=== PATIENT | male | born 1945 | race Asian ===

== ENCOUNTER 2016-08-12 10:17 | Inpatient (IN) | payer OTHER, MEDICAID ==
[~2016-08-12] VITALS: Ht 154.9 cm; Wt 56.5 kg
[~2016-08-12 10:17] MED LIST: ALBU18HF IH; ALBU8.5H3 INH; ALBU8.5H5 IH; AZIT250T94 PO; BUDE6HFA IH; PRED20TA PO; TIOT18CA IH
[2016-08-12] MEDS ORDERED: IPRATROPIUM (NEB) 0.5 MG/2.5 ML AMP INH STA ×2 (10:26→12:09)
[2016-08-12] MEDS ORDERED: ALBUTEROL 0.5% (NEB) 2.5 MG/0.5 ML AMP INH STA ×2 (10:26→12:09)
--- NOTE | 2016-08-12 10:56 | RADRPT ---
PROCEDURE: XR Chest. CLINICAL INDICATION: Shortness of breath TECHNIQUE: Chest AP portable COMPARISON: 05/12/2016 FINDINGS: The mediastinal structures are unremarkable. There is calcification of the thoracic aorta (consiste nt with atherosclerosis). The heart is normal in size and configuration. The pulmonary vascularity is normal. There is mild bibasilar subsegmental atelectasis. No consolidation is identified. The pleural spaces are unremarkable. There are senescent changes of the axial skeleton. IMPRESSION: Calcification of the thoracic aorta (consistent with atherosclerosis). No evidence for active cardiopulmonary disease. RPTAT: HGDB .Omari Mandel MD, Date Time Electronically viewed and signed by .Omari Mandel MD, on 08/12/2016 10:56 .B/
[2016-08-12] MEDS ORDERED: ALBU18HF INHALATION (11:04)
[2016-08-12] MEDS ORDERED: ADV10050 INHALATION (11:04)
[2016-08-12 11:20] LABS: CHLORIDE 96 mmol/L (97-110)
[2016-08-12 11:21] LABS: ALBUMIN 4.4 g/dl (3.3-4.9); SODIUM 139 mmol/L (135-144)
[2016-08-12 11:22] LABS: POTASSIUM 5.2 mmol/L (3.5-5.1)
[2016-08-12 11:24] LABS: ALANINE AMINOTRANSFERASE 20 IU/L (13-69); ALBUMIN/GLOBULIN RATIO 1.15; ALKALINE PHOSPHATASE 40 IU/L (42-121); ANION GAP 18 (8-16); ASPARTATE AMINO TRANSFERASE 39 IU/L (15-46); BILIRUBIN,INDIRECT 0.5 mg/dl (0-1.1); BILIRUBIN,TOTAL 0.5 mg/dl (0.2-1.3); BLOOD UREA NITROGEN 9 mg/dl (7-20); CARBON DIOXIDE 30 mmol/L (21-31); CREATININE 0.81 mg/dl (0.61-1.24); GLUCOSE 90 mg/dl (70-220); TOTAL PROTEIN 8.2 g/dl (6.1-8.1)
[2016-08-12 11:32] LABS: B-TYPE NATRIURETIC PEPTIDE 38 PG/ML (0-125); BASOPHILS % 0.1 % (0.0-2.0); EOSINOPHILS # 0.3 10^3/ul (0.0-0.5); EOSINOPHILS % 3.5 % (0.0-7.0); HEMATOCRIT 44.1 % (42.0-52.0); HEMOGLOBIN 15.2 g/dl (14.0-18.0); LYMPHOCYTES # 1.4 10^3/ul (0.8-2.9); LYMPHOCYTES % 15.5 % (15.0-51.0); MEAN CORPUSCULAR HEMOGLOBIN 35.1 pg (29.0-33.0); MEAN CORPUSCULAR HGB CONC 34.5 g/dl (32.0-37.0); MEAN CORPUSCULAR VOLUME 101.7 fl (82.0-101.0); MEAN PLATELET VOLUME 8.4 fl (7.4-10.4); MONOCYTE # 0.8 10^3/ul (0.3-0.9); MONOCYTES % 9.1 % (0.0-11.0); NEUTROPHIL # 6.3 10^3/ul (1.6-7.5); NEUTROPHILS % 71.8 % (39.0-77.0); PLATELET COUNT 179 10^3/UL (140-440); RED BLOOD COUNT 4.33 10^6/ul (4.70-6.10); RED CELL DISTRIBUTION WIDTH 13.9 % (11.5-14.5); UNCORRECTED WBC 8.8 10^3/ul (4.8-10.8); WHITE BLOOD COUNT 8.8 10^3/ul (4.8-10.8)
[2016-08-12 11:35] LABS: TROPONIN-I < 0.012 ng/ml (0.00-0.12)
[2016-08-12 11:37] LABS: CONDITION 1; LH ANALYZER COMMENTS 1
[2016-08-12] MEDS ORDERED: METHYLPREDNISOLONE 125 MG INJ IV STA (12:09)
--- NOTE | 2016-08-12 12:19 | ERA ---
ER Documentation Chief Complaint Date/Time DATE: 08/12/16 TIME: 1024 Chief Complaint MILD WHEEZING AND COUGH WITH SOB FOR 2 DAYS. NO SPUTUM. NO FEVERS. HPI 71-year-old male presents to the emergency department with his for evaluation of shortness of breath. Patient is a nie-[id number] male and my history is available only via conversation with the . According to the , patient has had increasing shortness of breath for the last 2 days. Patient has had wheezing and sputum production. Patient has had no hemoptysis. Patient reports no fevers chills or weight loss. Patient has had no significant chest pain. Despite the use of inhalers at home, patient continued to have shortness of breath. ROS All systems reviewed and are negative except as per history of present illness. Medications Home Meds Reported Medications Albuterol Sulfate* (Ventolin HFA*) 18 Gm Hfa.aer.ad, 2 PUFF INHALATION Q6H, #1 INHALER 08/12/16 Salmeterol Xinaf-Fluticasone* (Advair*) 100/50 Diskus Inhaler, 1 INH INHALATION BID, #1 INHALER 08/12/16 Discontinued Reported Medications Tiotropium Encampment* (Spiriva*) 18 Mcg Cap.w.dev, 1 INH IH DAILY, EA 11/27/14 Discontinued Scripts Prednisone* (Prednisone*) 20 Mg Tab, 20 MG PO DAILY for 4 Days, TAB Prov:OLIVE MASON PA-C 05/12/16 Azithromycin* (Zithromax*) 250 Mg Tablet, 250 MG PO .TheePACK DIRECTED, #6 TAB TAKE 500 MG (2 TABS) THE FIRST DAY THEN 250 MG (1 TAB) DAYS 2-5 Prov:OLIVE MASON PA-C 05/12/16 Albuterol Sulfate* (Proair HFA*) 8.5 Gm Hfa.aer.ad, 2 PUFF INH Q4, #1 INHALER Prov:OLIVE MASON PA-C 05/12/16 Albuterol Sulfate* (Albuterol Sulfate* HFA) 8.5 Gm Hfa.aer.ad, 2 PUFF IH Q4H Y for WHEEZING AND SOB, #1 EA Prov:HORTENSIA FARIAS MD 11/27/14 Budesonide-Formoterol Fumarate* (Symbicort*) 160-4.5 Hfa.aer.ad, 1 PUFF IH BID, #1 INH Prov:HORTENSIA FARIAS MD 11/27/14 Prednisone* (Prednisone*) 20 Mg Tab, 40 MG PO DAILY for 4 Days, TAB With Meals Prov:HORTENSIA FARIAS MD 11/27/14 Albuterol Sulfate* (Ventolin HFA*) 18 Gm Hfa.aer.ad, 2 PUFF IH Q4H Y for WHEEZING AND RESP DISTRESS, #30 EA 1 Refill Prov:BRAULIOGERALDINEKRISS 09/25/14 Allergies Allergies: Coded Allergies: No Known Allergies (Verified Allergy, Unknown, 08/12/16) PMhx/Soc History of Surgery: Yes (colonscopy and polypectomy 2011) Anesthesia Reaction: No Hx Neurological Disorder: No Hx Respiratory Disorders: Yes (sob / emphysema ) Hx Cardiac Disorders: No Hx Psychiatric Problems: No Hx Miscellaneous Medical Probl: Yes (COPD/Emphysema) Hx Alcohol Use: Yes (a beer occassionally) Hx Substance Use: No Hx Tobacco Use: Yes Smoking Status: Current every day smoker FmHx Noncontributory for chief complaint Physical Exam Vitals Vital Signs Date Time Temp Pulse Resp B/P Pulse Ox O2 Delivery O2 Flow Rate FiO2 08/12/16 10:49 83 20 99 Nasal Cannula 2.0 08/12/16 10:25 Nasal Cannula 2 08/12/16 10:18 98.8 92 24 146/73 93 Physical Exam GENERAL: The patient is well developed and appropriate for usual state of health in no apparent distress HEENT: Pupils equal, round, and reactive to light. EOMI. There is no scleral icterus. NECK: C-spine is soft and supple, there is no meningismus. There is no cervical lymphadenopathy. LUNGS: Wheezing and crackles bilaterally. Minimal tachypnea with no retractions or use of accessory muscles HEART: Regular rate and rhythm, no murmurs, clicks, rubs or gallops. ABDOMEN: Soft, non-tender, non-distended. There are bowel sounds in all four quadrants. No rebound or guarding. EXTREMITIES: There is no peripheral cyanosis or edema. No focal swelling or erythema. NEURO: The patient moves all four extremities with 5/5 strength. Cranial nerves II - XII are intact. Normal gait. Alert and oriented SKIN: There is no apparent rash or petechiae. HEME/LYMPHATIC: There is no evidence of excessive bruising or lymphedema. PSYCHIATRIC: The patient does not appear anxious or depressed. Result Diagram: 08/12/16 1040 08/12/16 1040 Results 24 hrs Laboratory Tests Test 08/12/16 10:40 Alanine Aminotransferase (ALT/SGPT) 20IU/L Albumin 4.4g/dl Albumin/Globulin Ratio 1.15 Alkaline Phosphatase 40IU/L Anion Gap 18 Aspartate Amino Transf (AST/SGOT) 39IU/L B-Type Natriuretic Peptide 38PG/ML Basophils # 0.010^3/ul Basophils % 0.1% Blood Morphology Comment Blood Urea Nitrogen 9mg/dl Calcium Level 9.0mg/dl Carbon Dioxide Level 30mmol/L Chloride Level 96mmol/L Creatinine 0.81mg/dl Direct Bilirubin 0.00mg/dl Eosinophils # 0.310^3/ul Eosinophils % 3.5% Globulin 3.80g/dl Glucose Level 90mg/dl Hematocrit 44.1% Hemoglobin 15.2g/dl Indirect Bilirubin 0.5mg/dl Lactic Acid Level 2.7mmol/L Lymphocytes # 1.410^3/ul Lymphocytes % 15.5% Mean Corpuscular Hemoglobin 35.1pg Mean Corpuscular Hemoglobin Concent 34.5g/dl Mean Corpuscular Volume 101.7fl Mean Platelet Volume 8.4fl Monocytes # 0.810^3/ul Monocytes % 9.1% Neutrophils # 6.310^3/ul Neutrophils % 71.8% Nucleated Red Blood Cells # 0.010^3/ul Nucleated Red Blood Cells % 0.0/100WBC Platelet Count 26653^3/UL Potassium Level 5.2mmol/L Red Blood Count 4.3310^6/ul Red Cell Distribution Width 13.9% Sodium Level 139mmol/L Total Bilirubin 0.5mg/dl Total Protein 8.2g/dl Troponin I < 0.012ng/ml White Blood Count 8.810^3/ul Current Medications Medications (Trade) Dose Ordered Sig/Emmanuel Route PRN Reason Start Time Stop Time Status Last Admin Dose Admin Albuterol (Proventil 0.5% (Neb)) 5 mg ONCE STAT INH 08/12/16 10:26 08/12/16 10:28 DC 08/12/16 10:49 Ipratropium Encampment (Atrovent 0.02% (Neb)) 0.5 mg ONCE STAT INH 08/12/16 10:26 08/12/16 10:28 DC 08/12/16 10:49 Albuterol (Proventil 0.5% (Neb)) 5 mg ONCE STAT INH 08/12/16 12:09 08/12/16 12:11 DC Ipratropium Encampment (Atrovent 0.02% (Neb)) 0.5 mg ONCE STAT INH 08/12/16 12:09 08/12/16 12:11 DC Methylprednisolone Sodium Succinate 125 mg 125 mg ONCE STAT IV 08/12/16 12:09 08/12/16 12:11 DC Levofloxacin/ Dextrose (Levaquin 750 Mg/ D5W 150 ml (Pmx)) 150 ml @ 100 mls/hr ONCE ONCE IVPB 08/12/16 12:30 08/12/16 13:59 Procedures/MDM Patient was taken to a room, seen and evaluated. Comfort measures were initiated. Diagnostic tests were ordered and reviewed. 3 LEAD RHYTHM STRIP: Normal sinus rhythm without ectopy EK lead EKG reviewed by myself: Normal Sinus Rhythm Normal [place] and intervals No ST elevation, depression, or T wave inversion Impression: Normal EKG RADIOLOGY: reviewed with the radiologist CONSULTATION: hospitalist was notified for admission REEVALUATION: Patient has required ongoing bronchodilators. Lactate was noted to be elevated. Patient was cultured and antibiotics were given. MEDICAL DECISION MAKING: Patient presents for shortness of breath. Differential diagnosis entertained included asthma, pneumonia, other cardiac and pulmonary concerns. After reviewing the patient's diagnostic tests and clinical presentation, patient appears to have decompensated COPD with a possible bronchitis versus early pneumonia. Given the patient's ongoing shortness of breath and borderline saturation upon presentation, patient will be admitted for observation and further treatment.. JULIA PENALOZA Aug 12, 2016 12:19
[2016-08-12 12:30] LABS: ADD UMIC NO; URINE BILIRUBIN (Dip) NEGATIVE (NEGATIVE); URINE BLOOD (Dip) NEGATIVE (NEGATIVE); URINE COLOR LT. YELLOW (YELLOW); URINE GLUCOSE (Dip) NEGATIVE (NEGATIVE); URINE KETONES (Dip) NEGATIVE (NEGATIVE); URINE LEUKOCYTE ESTERASE (Dip) NEGATIVE (NEGATIVE); URINE NITRITE (Dip) NEGATIVE (NEGATIVE); URINE TOTAL PROTEIN (Dip) NEGATIVE (NEGATIVE); URINE UROBILINOGEN (Dip) 0.2 E.U./dL (0.1-1.0)
[2016-08-12] MEDS ORDERED: LORAZEPAM 0.5 MG TAB PO PRN (12:30)
[2016-08-12] MEDS: ALBUTEROL HFA 8 GM INHALER INH SCH ×2 (12:30→18:03)
[2016-08-12] MEDS ORDERED: ALBUTEROL/IPRATROPIUM (NEB) 3 ML AMP HHN PRN (12:30)
[2016-08-12] MEDS ORDERED: LEVOFLOXACIN 750MG/D5W (PMX) 150 ML IVPB ONE (12:30)
[2016-08-12] MEDS ORDERED: DOCUSATE SODIUM 100 MG CAP PO PRN (12:30)
[2016-08-12] MEDS ORDERED: NITROGLYCERIN (SL) 0.4 MG TAB SL PRN (12:30)
[2016-08-12] MEDS ORDERED: ACETAMINOPHEN 325 MG TAB PO PRN (12:30)
[2016-08-12] MEDS ORDERED: ONDANSETRON 4 MG TAB PO PRN (12:30)
[2016-08-12] MEDS ORDERED: NACL 0.9% 3 ML SYG IV SCH (12:30)
[2016-08-12] MEDS ORDERED: BISACODYL (EC) 5 MG TAB PO PRN (12:30)
[2016-08-12 13:39] LABS: INR 1.03; PROTIME 13.5 Sec (12.2-14.2); PT RATIO 1.1
[2016-08-12 13:40] LABS: PARTIAL THROMBOPLASTIN TIME 34.3 Sec (25.0-35.0)
[2016-08-12 13:42] LABS: CREATINE KINASE 55 IU/L (23-200)
[2016-08-12] MEDS: METHYLPREDNISOLONE 125 MG INJ IV SCH ×2 (13:45→23:15)
[2016-08-12] MEDS: ALBUTEROL/IPRATROPIUM (NEB) 3 ML AMP HHN SCH ×2 (14:00→23:50)
[2016-08-12 14:11] LABS: CK-MB 1.37 ng/ml (0.0-2.4); TROPONIN-I < 0.012 ng/ml (0.00-0.12)
[2016-08-12] MEDS: CEFTRIAXONE 1 GM/50 ML (PMX) 50 ML IVPB SCH (14:57)
[2016-08-12 15:00] VITALS: TEMP 97.9
--- NOTE | 2016-08-12 15:06 | HP ---
DATE OF ADMISSION: 08/12/2016 CONSULTANTS: None. CHIEF COMPLAINT: Shortness of breath. HISTORY OF PRESENT ILLNESS: This is a pleasant 71-year-old gentleman with a past medical history of COPD, who presented to [facility] having respiratory distress and difficulty jesus thing. He usually uses his inhaler twice a day, although today The patient's breathing did not impr ove with using the inhaler. He did not use it more than usual in present evaluation at [facility] Emergency Room. Upon arrival to the emergency room a chest x-ray was normal and oxygen satu ration was found to be 93%, although he was found to have wheezing on examination. He was placed on Levaquin, Solu-Medrol, Atrovent, and Proventil, and his breathing status has been improving signifi cantly. At this time the patient denies having any chest pain, shortness of breath, nausea, vomitin g or diarrhea. No abdominal pain. No headache or dizziness. No recent travel history. No sick co ntacts. No cough, congestion, fever or any other discomfort. PAST MEDICAL AND SURGICAL HISTORY: COPD. MEDICATIONS: 1. Ventolin. 2. Solu-Medrol. 3. Advair. ALLERGIES: NO KNOWN DRUG ALLERGIES. FAMILY HISTORY: Noncontributory. SOCIAL HISTORY: He smokes about 2 to 4 cigarettes per day, although he used to smoke about a half a pack of cigarettes per day in the past. No alcohol, no illicit drugs. He lives at home with his s pouse. REVIEW OF SYSTEMS: As above, per HPI, otherwise 12 systems have been found to be negative. PHYSICAL EXAMINATION: VITAL SIGNS: Temperature 98.8, pulse 84, respirations 18, blood pressure 108/62, oxygen 98% on 2 li ters via nasal cannula. GENERAL APPEARANCE: The patient is lying in bed comfortably, without any distress. He is awake, al ert and oriented. He is able to answer my questions properly. EYES AND ENT: Conjunctivae and lids are normal. Pupils are normal. Extraocular is normal. Hearin g is grossly normal. Lips are normal. Oral mucosa is mildly dry. NECK: Supple. Trachea is midline. No lymphadenopathy. RESPIRATORY: Respiratory effort is normal. Clear to auscultate bilaterally. CARDIOVASCULAR: Normal S1, S2. Regular rhythm and rate. No murmur, no bruits, no edema. Peripher al pulses and radial pulses are palpable. Cap refill is normal. CHEST: Normal expansion of the thorax during inspiration. GASTROINTESTINAL: Abdomen is soft, nontender, not distended. Bowel sounds present. No guarding, n o rebound. GENITOURINARY: Deferred. MUSCULOSKELETAL: Upper and lower extremities are within normal limits. Full range of motion. Stre ngth is 5/5 for both upper and lower extremities. NEUROLOGIC: Cranial nerves II through XII are grossly intact. PSYCHIATRIC: Normal judgment and insight. Alert and oriented x3. Mood and affect are normal. LABORATORY WORK AND IMAGING: WBC 8.8, hemoglobin 15.2, hematocrit 44.1, platelets 179. MCV 101.7. Sodium 139, potassium 4.2, chloride 96, bicarbonate 30, BUN 9, creatinine 0.81, glucose 90, lactic acid 2.7. LFTs are all within normal limits. Troponin negative x2. ASSESSMENT AND PLAN: 1. Chronic obstructive pulmonary disease exacerbation. The patient has been started on Solu-Medrol , Rocephin and breathing treatments via DuoNeb, scheduled and p.r.n. Will continue to monitor the la juancho's breathing status. 2. Systemic inflammatory response syndrome. The patient's WBC is within normal limits. The patien t is not tachycardic or hypotensive. This is likely secondary to chronic obstructive pulmonary dise ase exacerbation. The patient has been started on Rocephin and will follow up serial lactic acid. 3. Hyperkalemia. Will continue to monitor. The patient's renal panel is within normal limits. 4. History of nicotine dependency. Will place the patient on a nicotine patch. Education was prov ided. Smoking cessation was advised. 5. For deep venous thrombosis prophylaxis he will be on Lovenox. 6. For gastrointestinal prophylaxis, on a proton pump inhibitor. 7. Will continue to monitor the patient closely. Further recommendations, management and treatment as per clinical course. Total amount of time spent for evaluation of the patient on admission workup was 40 minutes. Dictated By: SOFYA MENDEZ/NTS Conf#: [id number] DID#: [id number]
[2016-08-12 18:45] VITALS: BP 109/57; RESP 19
[2016-08-12 20:30] VITALS: BP 112/59; RESP 20
[2016-08-12 21:29] LABS: CREATINE KINASE 59 IU/L (23-200)
[2016-08-12 21:44] LABS: CK-MB 1.52 ng/ml (0.0-2.4); TROPONIN-I < 0.012 ng/ml (0.00-0.12)
[2016-08-12] MEDS: SALMETEROL/FLUTICASONE 100/50 INHA INH SCH (23:14)
[2016-08-13] MEDS: ALBUTEROL HFA 8 GM INHALER INH SCH ×5 (01:32→22:57)
[2016-08-13] MEDS: ALBUTEROL/IPRATROPIUM (NEB) 3 ML AMP HHN SCH ×4 (02:19→20:10)
[2016-08-13 05:57] LABS: HEMATOCRIT 40.5 % (42.0-52.0); LYMPHOCYTES # 0.8 10^3/ul (0.8-2.9); LYMPHOCYTES % 12.7 % (15.0-51.0); MEAN CORPUSCULAR HEMOGLOBIN 35.2 pg (29.0-33.0); MEAN CORPUSCULAR HGB CONC 34.6 g/dl (32.0-37.0); MEAN CORPUSCULAR VOLUME 101.6 fl (82.0-101.0); MEAN PLATELET VOLUME 8.2 fl (7.4-10.4); MONOCYTE # 0.1 10^3/ul (0.3-0.9); MONOCYTES % 2.3 % (0.0-11.0); NEUTROPHIL # 5.4 10^3/ul (1.6-7.5); PLATELET COUNT 173 10^3/UL (140-440); RED BLOOD COUNT 3.98 10^6/ul (4.70-6.10); RED CELL DISTRIBUTION WIDTH 13.7 % (11.5-14.5); UNCORRECTED WBC 6.3 10^3/ul (4.8-10.8); WHITE BLOOD COUNT 6.3 10^3/ul (4.8-10.8)
[2016-08-13 06:14] LABS: POTASSIUM 4.5 mmol/L (3.5-5.1)
[2016-08-13] MEDS: PANTOPRAZOLE (EC) 40 MG TAB PO SCH (06:16)
[2016-08-13] MEDS: METHYLPREDNISOLONE 125 MG INJ IV SCH ×3 (06:16→22:56)
[2016-08-13 06:17] LABS: CREATININE 0.85 mg/dl (0.61-1.24)
[2016-08-13 06:18] LABS: CALCIUM 8.9 mg/dl (8.4-10.2); MAGNESIUM 2.2 mg/dl (1.7-2.5)
[2016-08-13 06:20] LABS: CONDITION 1; LH ANALYZER COMMENTS 1
[2016-08-13 07:53] VITALS: BP 114/63; PULSE 76; RESP 18
--- NOTE | 2016-08-13 08:16 | RADRPT ---
PROCEDURE: XR Chest. CLINICAL INDICATION: COPD. TECHNIQUE: Single frontal view of the chest was obtained COMPARISON: Chest x-ray 08/12/2016 10:44 a.m. FINDINGS: There are atherosclerotic calcifications in the aortic arch. There are degenerative osteophytes in the thoracic spine. The soft tissues are generous. The heart, pulmonary vasculature and pleural spa rob are normal. There has been no interval change compared to the prior study. The lungs are mildly hyperinflated. IMPRESSION: 1. Stable chest x-ray with no evidence of active cardiopulmonary disease. 2. Atherosclerosis aortic arch. 3. Spondylosis of the thoracic spine. 4. Mild pulmonary hyperinflation. RPTAT:AAJJ Physician Sia Date Time Electronically viewed and signed by Kurtis Dennis Physician on 08/13/2016 08:16 /
[2016-08-13] MEDS: NICOTINE (14 MG/24 HR) PATCH TRANSDERM SCH (08:55)
[2016-08-13] MEDS: SALMETEROL/FLUTICASONE 100/50 INHA INH SCH ×2 (08:56→22:56)
[2016-08-13] MEDS ORDERED: INFLUENZA VIRUS VACCINE 0.5 ML (DISPENSING) IM* ONE (09:00)
[2016-08-13] MEDS: ENOXAPARIN 40 MG/0.4 ML SYG SC SCH (09:02)
[2016-08-13] MEDS: CEFTRIAXONE 1 GM/50 ML (PMX) 50 ML IVPB SCH (15:31)
--- NOTE | 2016-08-13 15:57 | PN ---
Date/Time of Note Date/Time of Note DATE: 08/13/16 TIME: 15:53 Assessment/Plan VTE Prophylaxis VTE Prophylaxis Intervention: LMWH Lines/Catheters IV Catheter Type (from [facility]): Saline Lock Urinary Cath still in place: No Assessment/Plan Chief Complaint/Hosp Course Assessment and plan 1. COPD with exacerbation. Continue on steroid. On empiric antibiotics. Continue with bronchodilators. Monitor for improvement of respiratory status 2. Sirs. Suspect secondary to acute bronchitis with COPD exacerbation. On antibiotics. We'll follow-up blood culture 3. Hyperkalemia. We'll monitor and provide with Kayexalate as needed 4. Nicotine dependence. Smoking cessation advised 5. DVT prophylaxis: Lovenox GERD prophylaxis: PPI Disposition and plan: Monitor for improvement of respiratory status. Continue inpatient monitoring. Discussed plan of care with Dr. Che Problems: Subjective 24 Hr Interval Summary Free Text/Dictation Still with reported shortness of breath. Does have audible wheezing Exam/Review of Systems Vital Signs Vitals Vital Signs Date Time Temp Pulse Resp B/P Pulse Ox O2 Delivery O2 Flow Rate FiO2 08/13/16 14:45 69 17 94 21 08/13/16 08:05 Nasal Cannula 2.0 08/13/16 07:53 99.1 114/63 Intake and Output 08/12/16 08/12/16 08/13/16 14:59 22:59 06:59 Intake Total 150 ml 480 ml Output Total 200 ml Balance 150 ml 280 ml Exam General: Still with some shortness of breath. No improved. No plan for stress Eyes: pupils equal round, Anicteric sclera Neck: Supple nontender, no JVD Cardiac: S1, S2 auscultated, regular rhythm and rate Pulmonary: Wheezing auscultated bilateral lung field GI: Abdomen soft nontender nondistended, bowel sounds active Extremities: No edema bilateral lower extremities Skin: Clean dry and intact Neurologic: Alert to person place and time and situation Results Result Diagram: 08/13/16 0520 08/13/16 0520 Results 24 hrs Laboratory Tests Test 08/12/16 20:55 08/13/16 05:20 08/13/16 12:05 Creatine Kinase 59 Creatine Kinase Index 2.6 Creatinine Kinase MB (Mass) 1.52 Lactic Acid Level 2.6 H 3.4 H Troponin I < 0.012 Anion Gap 18 H Basophils # 0.0 Basophils % 0.0 Blood Morphology Comment Blood Urea Nitrogen 17 Calcium Level 8.9 Carbon Dioxide Level 25 Chloride Level 98 Creatinine 0.85 Eosinophils # 0.0 Eosinophils % 0.0 Glucose Level 143 # Hematocrit 40.5 L Hemoglobin 14.0 Lymphocytes # 0.8 Lymphocytes % 12.7 L Magnesium Level 2.2 Mean Corpuscular Hemoglobin 35.2 H Mean Corpuscular Hemoglobin Concent 34.6 Mean Corpuscular Volume 101.6 H Mean Platelet Volume 8.2 Monocytes # 0.1 L Monocytes % 2.3 Neutrophils # 5.4 Neutrophils % 85.0 H Nucleated Red Blood Cells # 0.0 Nucleated Red Blood Cells % 0.0 Platelet Count 173 Potassium Level 4.5 Red Blood Count 3.98 L Red Cell Distribution Width 13.7 Sodium Level 136 White Blood Count 6.3 # Medications Medications Current Medications Albuterol (Ventolin Hfa) 2 puff Q6H INH Last administered on 08/13/16 12:38; Admin Dose 2 PUFF; Start 08/12/16 at 12:30 Salmeterol Xinafoate/ Fluticasone (Advair 100/50 Diskus) 1 inh BID INH Last administered on 08/13/16 08:56; Admin Dose 1 INH; Start 08/12/16 at 21:00 Lorazepam (Ativan) 0.5 mg Q8H PRN PO ANXIETY; Start 08/12/16 at 12:30 Ondansetron HCl (Zofran Tab) 4 mg Q6H PRN PO NAUSEA AND/OR VOMITING; Start at 12:30 Methylprednisolone Sodium Succinate (Solu-Medrol) 60 mg Q8 IV Last administered on 08/13/16 15:31; Admin Dose 60 MG; Start 08/12/16 at 14:00 Nitroglycerin (Nitroglycerin (Sl Tab) 0.4 Mg) 1 tab Q5M PRN SL CHEST PAIN; Start 08/12/16 at 12:30 Acetaminophen (Tylenol Tab) 650 mg Q6H PRN PO PAIN LEVEL 1-3 OR FEVER; Start at 12:30 Docusate Sodium (Colace) 100 mg Q12H PRN PO CONSTIPATION; Start 08/12/16 at 12: 30 Bisacodyl (Dulcolax) 5 mg DAILY PRN PO CONSTIPATION; Start 08/12/16 at 12:30 Pantoprazole (Protonix Tab) 40 mg DAILY@06 PO Last administered on 08/13/16 06 :16; Admin Dose 40 MG; Start 08/13/16 at 06:00 Enoxaparin Sodium 40 mg 40 mg DAILY SC Last administered on 08/13/16 09:02; Admin Dose 40 MG; Start 08/13/16 at 09:00 Ceftriaxone Sodium (Rocephin) 50 ml @ 100 mls/hr Q24H IVPB Last administered on 08/13/16 15:31; Admin Dose 100 MLS/HR; Start 08/12/16 at 15:00 Nicotine (Nicoderm 14 Mg/ 24hr) 1 patch DAILY TRANSDERM Last administered on 08:55; Admin Dose 1 PATCH; Start 08/13/16 at 09:00 KRISS LEGGETT Aug 13, 2016 15:57
[2016-08-13 21:56] VITALS: BP 119/59; RESP 16
[2016-08-14] MEDS: ALBUTEROL/IPRATROPIUM (NEB) 3 ML AMP HHN SCH ×2 (01:11→09:53)
[2016-08-14 06:29] LABS: POTASSIUM 5.2 mmol/L (3.5-5.1)
[2016-08-14] MEDS: ALBUTEROL HFA 8 GM INHALER INH SCH ×2 (06:30→12:30)
[2016-08-14 06:32] LABS: CREATININE 0.63 mg/dl (0.61-1.24)
[2016-08-14 06:33] LABS: CALCIUM 8.5 mg/dl (8.4-10.2)
[2016-08-14 06:42] LABS: BASOPHILS % 0.1 % (0.0-2.0); HEMATOCRIT 40.1 % (42.0-52.0); LYMPHOCYTES # 0.8 10^3/ul (0.8-2.9); LYMPHOCYTES % 8.1 % (15.0-51.0); MEAN CORPUSCULAR HEMOGLOBIN 35.9 pg (29.0-33.0); MEAN CORPUSCULAR HGB CONC 34.9 g/dl (32.0-37.0); MEAN CORPUSCULAR VOLUME 102.7 fl (82.0-101.0); MEAN PLATELET VOLUME 7.9 fl (7.4-10.4); MONOCYTE # 0.4 10^3/ul (0.3-0.9); MONOCYTES % 3.8 % (0.0-11.0); NEUTROPHIL # 9.2 10^3/ul (1.6-7.5); PLATELET COUNT 178 10^3/UL (140-440); RED BLOOD COUNT 3.91 10^6/ul (4.70-6.10); UNCORRECTED WBC 10.5 10^3/ul (4.8-10.8); WHITE BLOOD COUNT 10.5 10^3/ul (4.8-10.8)
[2016-08-14] MEDS: METHYLPREDNISOLONE 125 MG INJ IV SCH (06:52)
[2016-08-14] MEDS: PANTOPRAZOLE (EC) 40 MG TAB PO SCH (06:52)
[2016-08-14 07:07] LABS: CONDITION 1; LH ANALYZER COMMENTS 1
[2016-08-14 08:05] VITALS: BP 120/66; PULSE 93; RESP 20
[2016-08-14] MEDS: SALMETEROL/FLUTICASONE 100/50 INHA INH SCH (08:08)
[2016-08-14] MEDS: NICOTINE (14 MG/24 HR) PATCH TRANSDERM SCH (08:08)
[2016-08-14] MEDS: ENOXAPARIN 40 MG/0.4 ML SYG SC SCH (08:19)
[2016-08-14] MEDS ORDERED: ADV25050 INHALATION (09:28)
[2016-08-14] MEDS ORDERED: PRED10TA PO (09:28)
[2016-08-14] MEDS ORDERED: AZIT500T2 PO (09:28)
[2016-08-14] MEDS ORDERED: ALBU18HF INHALATION (09:28)
--- NOTE | 2016-08-14 09:31 | PDOCDIS ---
Discharge Instructions DIAGNOSIS Discharge Diagnosis: 1. copd exacerbation 2. acute bronchitis CONDITION Patient Condition: Stable HOME CARE INSTRUCTIONS: Special Diet: REGULAR FOLLOW UP/APPOINTMENTS Appointments 1. Follow up with your primary care provider in one week KRISS LEGGETT Aug 14, 2016 09:31
--- NOTE | 2016-08-14 15:23 | DS ---
Date/Time of Note Date/Time of Note DATE: 08/14/16 TIME: 15:21 Discharge Summary Admission/Discharge Info Admit Date/Time Aug 12, 2016 at 12:20 Discharge Date/Time Aug 14, 2016 at 14:37 Final Diagnosis 1. COPD with exacerbation. 2. Sirs. Suspect secondary to acute bronchitis with COPD exacerbation. 3. Nicotine dependence. Smoking cessation advised Patient Condition: Stable Hospital Course This is a 71-year-old male with history of COPD who came to [facility] due to reports of increased shortness of breath and dyspnea on exertion. Patient does report using his inhaler twice a day for despite his regimen he still had some increased shortness of breath. When he came to [facility] he was found to have a normal chest x-ray that was found to have active bronchospasm. Patient was placed on steroid medication as well as bronchodilators. He also had some cough nonproductive. He was with suspect acute bronchitis as well. He was placed on antibiotics for this reason. During his course of stay he did improve. He did have good response to steroid treatment and we did provide him with taper on the day of his discharge. He was also continued on antibiotic as well. He was advised for Cipro smoking cessation and he was provided with prescriptions for his bronchitis. The plan of care was discussed with the patient and patient did verbalize understanding. On the day of discharge patient was in stable condition Discussed but of care with Dr. Che Discharge process time is 40 minutes Disposition: Home Home Meds Active Scripts Prednisone* (Prednisone*) 10 Mg Tab, 10 MG PO DAILY, #30 TAB 1. Take 40mg by mouth daily for 3 days 2. then 30mg by mouth daily for 3 days 3. then 20mg by mouth daily for 3 days 4. then 10mg by mouth daily for 3 days Prov:KRISS LEGGETT 08/14/16 Azithromycin* (Zithromax* Tri-Heriberto) 500 Mg Tablet, 500 MG PO DAILY for 3 Days, TAB Prov:REGIDORKRISS 08/14/16 Salmeterol Xinaf/Fluticasone* (Advair*) 250-50 Diskus Inhaler, 1 INH INHALATION BID, #1 INHALER 2 Refills Prov:REGKRISS CHANDLER 08/14/16 Albuterol Sulfate* (Ventolin HFA*) 18 Gm Hfa.aer.ad, 2 PUFF INHALATION Q6H, #1 INHALER 2 Refills Prov:KRISS LEGGETT 08/14/16 Discontinued Reported Medications Salmeterol Xinaf-Fluticasone* (Advair*) 100/50 Diskus Inhaler, 1 INH INHALATION BID, #1 INHALER 08/12/16 Tiotropium [place]* (Spiriva*) 18 Mcg Cap.w.dev, 1 INH IH DAILY, EA 11/27/14 Discontinued Scripts Prednisone* (Prednisone*) 20 Mg Tab, 20 MG PO DAILY for 4 Days, TAB Prov:OLIVE MASON-C 05/12/16 Azithromycin* (Zithromax*) 250 Mg Tablet, 250 MG PO .ALLYSON DIRECTED, #6 TAB TAKE 500 MG (2 TABS) THE FIRST DAY THEN 250 MG (1 TAB) DAYS 2-5 Prov:OLIVE MASON-C 05/12/16 Albuterol Sulfate* (Proair HFA*) 8.5 Gm Hfa.aer.ad, 2 PUFF INH Q4, #1 INHALER Prov:OLIVE MASONC 05/12/16 Albuterol Sulfate* (Albuterol Sulfate* HFA) 8.5 Gm Hfa.aer.ad, 2 PUFF IH Q4H Y for WHEEZING AND SOB, #1 EA Prov:HORTENSIA FARIAS MD 11/27/14 Budesonide-Formoterol Fumarate* (Symbicort*) 160-4.5 Hfa.aer.ad, 1 PUFF IH BID, #1 INH Prov:HORTENSIA FARIAS MD 11/27/14 Prednisone* (Prednisone*) 20 Mg Tab, 40 MG PO DAILY for 4 Days, TAB With Meals Prov:HORTENSIA FARIAS MD 11/27/14 Albuterol Sulfate* (Ventolin HFA*) 18 Gm Hfa.aer.ad, 2 PUFF IH Q4H Y for WHEEZING AND RESP DISTRESS, #30 EA 1 Refill Prov:KRISS LEGGETT 09/25/14 Follow-up Plan CONDITION Patient Condition: Stable HOME CARE INSTRUCTIONS: Special Diet: REGULAR FOLLOW UP/APPOINTMENTS Appointments 1. Follow up with your primary care provider in one week Pending Labs Laboratory Tests Test 08/14/16 05:31 08/14/16 05:37 Anion Gap 20 (8-16) Blood Urea Nitrogen 20mg/dl (7-20) Calcium Level 8.5mg/dl (8.4-10.2) Carbon Dioxide Level 23mmol/L (21-31) Chloride Level 98mmol/L (97-110) Creatinine 0.63mg/dl (0.61-1.24) Glucose Level 125mg/dl (70-220) Potassium Level 5.2mmol/L (3.5-5.1) Sodium Level 136mmol/L (135-144) Basophils # 0.010^3/ul (0.0-0.1) Basophils % 0.1% (0.0-2.0) Blood Morphology Comment Eosinophils # 0.010^3/ul (0.0-0.5) Eosinophils % 0.0% (0.0-7.0) Hematocrit 40.1% (42.0-52.0) Hemoglobin 14.0g/dl (14.0-18.0) Lymphocytes # 0.810^3/ul (0.8-2.9) Lymphocytes % 8.1% (15.0-51.0) Mean Corpuscular Hemoglobin 35.9pg (29.0-33.0) Mean Corpuscular Hemoglobin Concent 34.9g/dl (32.0-37.0) Mean Corpuscular Volume 102.7fl (82.0-101.0) Mean Platelet Volume 7.9fl (7.4-10.4) Monocytes # 0.410^3/ul (0.3-0.9) Monocytes % 3.8% (0.0-11.0) Neutrophils # 9.210^3/ul (1.6-7.5) Neutrophils % 88.0% (39.0-77.0) Nucleated Red Blood Cells # 0.010^3/ul (0.0-0.0) Nucleated Red Blood Cells % 0.0/100WBC (0.0-0.0) Platelet Count 46254^3/UL (140-440) Red Blood Count 3.9110^6/ul (4.70-6.10) Red Cell Distribution Width 14.0% (11.5-14.5) White Blood Count 10.510^3/ul (4.8-10.8) KRISS LEGGETT Aug 14, 2016 15:23
[2016-08-16 08:23] LABS: AADO2 Arterial 31.9 mmHg (7.0-24.0); Allen Test ACCEPTAB; Arterial Base Excess -2.4 mmol/L (-3.0-3); Arterial COHb 0.3 % (0.0-3.0); Arterial Fraction of Oxyhgb 94.4 % (93.0-99.0); Arterial HCO3 21.5 mmol/L (22.0-26.0); Arterial MetHb 0.4 % (0.0-1.5); Arterial Total Hemglobin 14.7 g/dl (12.0-18.0); MODE ROOM AIR
== END 2016-08-14 14:37 | disposition home or self-care (01) | DRG 191 ==
LOC: E/R 10:17 → MS2 12:20
PROVIDERS: ADMIT Family Medicine; ATTEND Family Medicine
DX: J44.0 Chronic obstructive pulmonary disease with (acute) lower respiratory infection (principal); R65.10 Systemic inflammatory response syndrome (SIRS) of non-infectious origin without acute organ dysfunction; E87.5 Hyperkalemia; J20.9 Acute bronchitis, unspecified; J44.1 Chronic obstructive pulmonary disease with (acute) exacerbation; F17.200 Nicotine dependence, unspecified, uncomplicated
CPT/HCPCS: 36415; 36600; 71010; 80048; 80053; 81003; 82550; 82553; 82803; 83605; 83735; 83880; 84484; 85025; 85610; 85730; 87040; 90686; 93005; 94640; 94664; 96365; 96366; 96367; 96375; J0696; J1650; J1956; J2930